=== PATIENT | female | born 1985 | race Hispanic/Latino ===

== ENCOUNTER 2021-11-28 01:14 | Emergency (ER) | payer BC ==
[~2021-11-28] VITALS: Ht 152.4 cm; Wt 58.1 kg
[2021-11-28] MEDS ORDERED: BENZONATATE 100 MG CAPSULE PO ONE (02:30)
[2021-11-28] MEDS ORDERED: ACETAMINOPHEN 500 MG TABLET PO ONE (02:30)
[2021-11-28 04:22] VITALS: BP 115/65
[2021-11-28] MEDS ORDERED: BENZ-39 PO (04:33)
== END 2021-11-28 04:57 | disposition home or self-care (01) ==
LOC: EDH 01:14
DX: J20.9 Acute bronchitis, unspecified (principal); Z20.822 Contact with and (suspected) exposure to COVID-19; E03.9 Hypothyroidism, unspecified
CPT/HCPCS: 87635; 87804 ×2; 87880; 99283; C9803

== ENCOUNTER 2022-12-24 07:21 | Emergency (ER) | payer BC ==
[~2022-12-24] VITALS: Ht 152.4 cm; Wt 58.5 kg
[~2022-12-24 07:21] MED LIST: BENZ-39 PO
[2022-12-24 09:09] VITALS: BP 128/75
== END 2022-12-24 09:14 | disposition home or self-care (01) ==
LOC: EDH 07:21
DX: T23.271A Burn of second degree of right wrist, initial encounter (principal); E03.9 Hypothyroidism, unspecified; X08.8XXA Exposure to other specified smoke, fire and flames, initial encounter; Y93.89 Activity, other specified; Y92.89 Other specified places as the place of occurrence of the external cause; Y99.8 Other external cause status
CPT/HCPCS: 99282

== ENCOUNTER → 2023-12-26 | Outpatient (CLI) | payer BC | END | disposition home or self-care (01) | LOC: LAB 16:52 | PROVIDERS: ATTEND Internal Medicine Endocrinology, Diabetes & Metabolism | DX: Z85.850 Personal history of malignant neoplasm of thyroid (principal) | CPT/HCPCS: 36415; 84443 ==

== ENCOUNTER → 2024-02-24 | Outpatient (CLI) | payer BC | END | disposition home or self-care (01) | LOC: LAB 09:29 | PROVIDERS: ATTEND Internal Medicine Endocrinology, Diabetes & Metabolism | DX: E89.0 Postprocedural hypothyroidism (principal) | CPT/HCPCS: 36415; 82105; 84432; 84443 ==

== ENCOUNTER → 2024-05-20 | Outpatient (CLI) | payer BC ==
[2024-05-20 08:50] LABS: BASOPHILS # (AUTO) 0.03 K/uL (0.00-0.20); BASOPHILS % (AUTO) 0.5 % (0.0-5.0); EOSINOPHILS # (AUTO) 0.11 K/uL (0.00-0.70); EOSINOPHILS % (AUTO) 1.7 % (0.0-8.0); HEMATOCRIT 31.8 % (36-48); IMMATURE GRANULOCYTE ABSOLUTE 0.02 K/uL (0-1); LYMPHOCYTES # (AUTO) 1.8 K/uL (1.0-4.8); LYMPHOCYTES % (AUTO) 27.3 % (21.0-51.0); MEAN CORPUSCULAR HEMOGLOBIN 28.2 pg (27.0-33.0); MEAN CORPUSCULAR VOLUME 85.5 fL (79-99); MONOCYTES # (AUTO) 0.4 K/uL (0.1-1.0); MONOCYTES % (AUTO) 6.9 % (3.0-13.0); NEUTROPHILS # (AUTO) 4.1 K/uL (1.8-7.7); NEUTROPHILS % (AUTO) 63.3 % (40.0-77.0); PLATELET COUNT (AUTO) 253 K/uL (130-400); RED BLOOD CELL COUNT(AUTO) 3.72 MIL/uL (4.00-5.50); RED CELL DISTRIBUTION WIDTH 14.3 % (11.0-15.5); WHITE BLOOD COUNT (AUTO) 6.4 K/uL (4.8-10.8)
[2024-05-20 09:31] LABS: ALBUMIN 3.8 g/dL (3.5-5.0); BILIRUBIN,TOTAL 0.4 mg/dL (0.2-1.0); CREATININE 0.8 mg/dL (0.5-1.0); POTASSIUM 3.7 mmol/L (3.5-5.1); THYROID STIMULATING HORMONE 0.78 uIU/mL (0.36-3.74); TOTAL PROTEIN, SERUM 7.7 g/dL (6.0-8.3)
== END | disposition home or self-care (01) ==
LOC: LAB 08:04
PROVIDERS: ATTEND Family Medicine
DX: E78.5 Hyperlipidemia, unspecified (principal); D64.9 Anemia, unspecified; R73.9 Hyperglycemia, unspecified; E55.9 Vitamin D deficiency, unspecified; E89.0 Postprocedural hypothyroidism
CPT/HCPCS: 36415; 80053; 80061; 82105; 82306; 82607; 82728; 83036; 83540; 84443; 85025; 86800